=== PATIENT | male | born 1955 | race Caucasian/White ===

== ENCOUNTER 2022-06-22 16:03 | Emergency (ER) | payer OTHER ==
[~2022-06-22] VITALS: Ht 170.2 cm; Wt 92.1 kg
[2022-06-22] MEDS ORDERED: B-121000 MC2 PO (16:36)
[2022-06-22] MEDS ORDERED: NORVASC10 MG PO (16:36)
[2022-06-22] MEDS ORDERED: TAMSULOSIN HCL0.4 MG PO (16:37)
[2022-06-22] MEDS ORDERED: FAMOTIDINE20 MG PO (16:37)
[2022-06-22] MEDS ORDERED: MAXZIDE 37.5 MG-1 EA PO (16:38)
[2022-06-22] MEDS ORDERED: VITAMIN D325 MCG PO (16:38)
[2022-06-22] MEDS ORDERED: OXYCODONE HCL5 MG PO (18:48)
[2022-06-22] MEDS ORDERED: ONDANSETRON ODT8 MG PO (18:48)
== END 2022-06-22 19:13 | disposition home or self-care (01) ==
LOC: ED 16:03
DX: R16.0 Hepatomegaly, not elsewhere classified (principal); I10 Essential (primary) hypertension; K21.9 Gastro-esophageal reflux disease without esophagitis; Z91.013 Allergy to seafood; Z79.899 Other long term (current) drug therapy
CPT/HCPCS: 36415; 71046; 74176; 80053; 81003; 85025; 96361; 96374; 99284-25; J2405; J7030

== ENCOUNTER 2022-09-14 03:06 | Emergency (ER) | payer OTHER ==
[~2022-09-14] VITALS: Ht 170.2 cm; Wt 88.0 kg
[~2022-09-14 03:06] MED LIST: B-121000 MC2 PO; FAMOTIDINE20 MG PO; MAXZIDE 37.5 MG-1 EA PO; NORVASC10 MG PO; ONDANSETRON ODT8 MG PO; OXYCODONE HCL5 MG PO; TAMSULOSIN HCL0.4 MG PO; VITAMIN D325 MCG PO
--- OUTSIDE RECORDS SUMMARY | 2022-09-14 03:10 | XMS ---
PreManage Notification: KALLIE SILVER Security [place] Events No recent Security Events currently on file [facility] There are no care providers on record at this time. Amie has no Care Guidelines for this patient. Kori VISIT COUNT (12 MO.) 2 MAGDA Perez TOTAL 2 NOTE: Visits indicate total known visits. ED/UCC VISIT TRACKING (12 MO.) 09/14/2022 03:08 [facility] [place] TYPE: Emergency COMPLAINT: - RT SIDE ABD PAIN/FLANK PAIN 06/22/2022 16:04 [facility] [place] TYPE: Emergency COMPLAINT: - ABDOMINAL PAIN DIAGNOSES: - Allergy to seafood - Essential (primary) hypertension - Gastro-esophageal reflux disease without esophagitis - Hepatomegaly, not elsewhere classified - Other long term care phlebotomist (current) drug therapy - Unspecified abdominal pain INPATIENT VISIT TRACKING (12 MO.) No inpatient visits to display in this time frame [email or web address]
[2022-09-14] MEDS ORDERED: GENERLAC10 GM/15 M PO (03:37)
[2022-09-14] MEDS ORDERED: LAXATIVE5 M1 PO (03:39)
[2022-09-14] MEDS ORDERED: DOCUSATE SODIU250 MG PO (03:40)
[2022-09-14] MEDS ORDERED: TOPROL XL50 MG PO (03:41)
[2022-09-14 05:03] VITALS: BP 134/88
== END 2022-09-14 05:04 | disposition home or self-care (01) ==
LOC: ED 03:06
DX: G89.3 Neoplasm related pain (acute) (chronic) (principal); R10.9 Unspecified abdominal pain; I10 Essential (primary) hypertension; K21.9 Gastro-esophageal reflux disease without esophagitis; Z91.013 Allergy to seafood; Z79.899 Other long term (current) drug therapy
CPT/HCPCS: 96372; 99284; J2270

== ENCOUNTER 2022-09-18 13:44 | Emergency (ER) | payer OTHER ==
[~2022-09-18] VITALS: Ht 175.3 cm; Wt 85.5 kg
[~2022-09-18 13:44] MED LIST changes: +DOCUSATE SODIU250 MG PO; +GENERLAC10 GM/15 M PO; +LAXATIVE5 M1 PO; +TOPROL XL50 MG PO
--- OUTSIDE RECORDS SUMMARY | 2022-09-18 13:47 | XMS ---
PreManage Notification: KALLIE SILVER Security [employer] Events No recent Security Events currently on file CRITERIA MET - [facility] - [facility] - 2 Visits in 30 Days CARE PROVIDERS There are no care providers on record at this time. Amie has no Care Guidelines for this patient. [facility] ([address] [facility] NOTE: Visits indicate total known visits. ED/C VISIT TRACKING (12 MO.) 09/18/2022 13:44 [facility] TYPE: Emergency COMPLAINT: - DIFFICULTY BREATHING 09/16/2022 08:16 [facility] [place]: Emergency COMPLAINT: - FLUID IN ABD 09/14/2022 03:08 [facility] [place] TYPE: Emergency COMPLAINT: - RT SIDE ABD PAIN/FLANK PAIN 06/22/2022 16:04 [facility] [place] TYPE: Emergency COMPLAINT: - ABDOMINAL PAIN DIAGNOSES: - Allergy to seafood - Essential (primary) hypertension - Gastro-esophageal reflux disease without esophagitis - Hepatomegaly, not elsewhere classified - Other vermin exterminator (current) drug therapy - Unspecified abdominal pain INPATIENT VISIT TRACKING (12 MO.) No inpatient visits to display in this time frame [email or web address]
--- NOTE | 2022-09-18 17:44 | EKG ---
[facility] [address] [place], [place] [address] Signed Sinus tachycardia Otherwise normal ECG No previous ECGs available Confirmed by COREY LOPEZ MD ([id number]) on 09/18/2022 5:44:42 PM Electronically Signed By: COREY LOPEZ MD 09/18/22 1744 PATIENT NAME: KALLIE SILVER Electrocardiogram DATE OF : 53 PHYSICIAN: COREY LOPEZ MD REPORT #: [id number] REPORT IS CONFIDENTIAL AND NOT TO BE RELEASED WITHOUT AUTHORIZATION
[2022-09-18 20:24] VITALS: BP 97/72
== END 2022-09-18 20:15 | disposition short-term general hospital (02) ==
LOC: ED 13:44
DX: J96.90 Respiratory failure, unspecified, unspecified whether with hypoxia or hypercapnia (principal); C22.9 Malignant neoplasm of liver, not specified as primary or secondary; J91.0 Malignant pleural effusion; I10 Essential (primary) hypertension; Z91.013 Allergy to seafood; Z79.899 Other long term (current) drug therapy
CPT/HCPCS: 31500; 36415; 36600; 71045; 80048; 80053; 82803; 83605; 83735; 83880; 84484; 85025; 87502; 89051; 93005; 93010; 94002; C9803; J1956; J2250; J3010; J7050; P9047; U0003